=== PATIENT | female | born 1990 | race Hispanic/Latino ===

== ENCOUNTER 2019-06-03 01:14 | Emergency (ER) | payer OTHER | END 2019-06-03 01:53 | disposition home or self-care (01) | LOC: EDH 01:14 | DX: S62.316A Displaced fracture of base of fifth metacarpal bone, right hand, initial encounter for closed fracture (principal); W18.39XA Other fall on same level, initial encounter; Y93.01 Activity, walking, marching and hiking; Y92.89 Other specified places as the place of occurrence of the external cause; Y99.8 Other external cause status | CPT/HCPCS: 29125; 73130 ==

== ENCOUNTER 2019-09-10 11:47 | Emergency (ER) | payer SELFPAY ==
[2019-09-10] MEDS ORDERED: KETOROLAC TROMETHAMINE 60 MG/2 ML VIAL ONE (13:06)
== END 2019-09-10 14:40 | disposition home or self-care (01) ==
LOC: EDH 11:47
DX: S20.212A Contusion of left front wall of thorax, initial encounter (principal); W18.39XA Other fall on same level, initial encounter; Y93.01 Activity, walking, marching and hiking; Y92.89 Other specified places as the place of occurrence of the external cause; Y99.8 Other external cause status
CPT/HCPCS: 71045; 96372; 99283; J1885

== ENCOUNTER 2020-11-16 08:45 | Emergency (ER) | payer OTHER | END 2020-11-16 10:15 | disposition home or self-care (01) | LOC: EDH 08:45 | DX: R06.02 Shortness of breath (principal); R05 Cough; R11.0 Nausea; M79.10 Myalgia, unspecified site; R50.9 Fever, unspecified | CPT/HCPCS: 99281 ==